=== PATIENT | female | born 1970 | race Caucasian/White ===

== ENCOUNTER → 2019-02-15 14:23 | Outpatient (CLI) | payer MEDICARE, OTHER, SELFPAY ==
--- NOTE | 2019-02-15 | DI.MG.S_ITS ---
BILATERAL DIGITAL SCREENING MAMMOGRAM 3D/2D WITH CAD: 02/15/2019 CLINICAL: Routine screening. Family history of breast cancer. Comparison is made to exams dated: 05/12/2014 mammogram, 01/27/2013 mammogram, and 11/20/2011 mammogram - [facility]. The tissue of both breasts is heterogeneously dense. This may lower the sensitivity of mammography. Current study was also evaluated with a Computer Aided Detection (CAD) system. No significant masses, calcifications, or other findings are seen in either breast. There has been no significant interval change. IMPRESSION: NEGATIVE There is no mammographic evidence of malignancy. A 1 year screening mammogram is recommended. This exam was interpreted at Station ID: [id number]. NOTE: For mammograms, a report in lay terms will be sent to the patient. Approximately 15% of breast malignancies will not be visualized mammographically. In the management of a palpable breast mass, a negative mammogram must not discourage biopsy of a clinically suspicious lesion. Electronically Signed By: Jovan maradiaga/deshaun:02/15/2019 16:59:08 letter sent: Normal Exam ACR BI-RADS Category 1: Negative 3341F
== END ==
PROVIDERS: PCP Family Medicine; Visit Provider Family Medicine
DX: Z12.31 Encounter for screening mammogram for malignant neoplasm of breast (principal); Z80.3 Family history of malignant neoplasm of breast
CPT/HCPCS: 77063; 77067

== ENCOUNTER → 2019-11-11 10:23 | Outpatient (CLI) | payer MEDICARE, OTHER, SELFPAY ==
--- NOTE | 2019-11-11 | DI.MG.S_ITS ---
BILATERAL DIGITAL DIAGNOSTIC MAMMOGRAM 3D/2D: 11/11/2019 CLINICAL: Bilateral breast mass and pain. Comparison is made to exams dated: 02/15/2019 mammogram - [facility], 05/12/2014 mammogram, 01/27/2013 mammogram, and 11/20/2011 mammogram - [facility]. The tissue of both breasts is heterogeneously dense. This may lower the sensitivity of mammography. Subtle increased density in the region of the palpable marker in the left breast 3:00. Axillary lymph nodes appear unchanged and symmetric bilaterally. No significant calcifications are seen in either breast. IMPRESSION: INCOMPLETE: NEEDS ADDITIONAL IMAGING EVALUATION Subtle increased density in the region of the palpable marker in the left breast 3:00. A targeted ultrasound is recommended and will immediately follow. Axillary lymph nodes appear unchanged and symmetric bilaterally. Targeted ultrasounds are recommended and will immediately follow. Targeted ultrasound is also recommended of palpable abnormality in the left axillary tail. This exam was interpreted at Station ID: [id number]. NOTE: For mammograms, a report in lay terms will be sent to the patient. Approximately 15% of breast malignancies will not be visualized mammographically. In the management of a palpable breast mass, a negative mammogram must not discourage biopsy of a clinically suspicious lesion. Electronically Signed By: Sid Llanos M.D. slc/:11/11/2019 14:05:12 ACR BI-RADS Category 0: Incomplete 3340F
--- NOTE | 2019-11-11 | DI.US.S_ITS ---
LIMITED ULTRASOUND OF LEFT BREAST AND AXILLA: 11/11/2019 CLINICAL: Palpable left breast lump. Palpable left axilla lump. Comparison is made to exams dated: 11/11/2019 mammogram, 02/15/2019 mammogram - [facility], 05/12/2014 mammogram, 01/27/2013 mammogram, and 11/20/2011 mammogram - [facility]. Color flow and real-time ultrasound of the left breast 1-3 o'clock, and axilla regions were performed. Gonzales scale images of the real-time examination were reviewed. There is an oval area of fibroglandular tissue with a circumscribed margin in the left axillary tail. This oval area of fibroglandular tissue is isoechoic. This correlates as palpated and with mammography findings. Color flow imaging demonstrates that there is vascularity present. There is fibroglandular tissue in this region seen on mammogram. No finding to correspond to the palpable abnormality in the left breast at 3:00 lateral to the nipple. Small left axillary lymph nodes. No significant cortical thickening identified. Fatty hilum of the lymph nodes are preserved. IMPRESSION: PROBABLY BENIGN 1) The oval area of fibroglandular tissue in the left axillary tail corresponding to the palpable abnormality most likely is a fat lobule or ectopic breast tissue and is probably benign. A follow-up ultrasound in 3 months is recommended. 2) No finding to correspond to the palpable abnormality in the left breast at 3:00 lateral to the nipple. 3) Small left axillary lymph nodes without significant cortical thickening. Recommend re-evaluation of the left axillary lymph nodes in 3 months; as well as the right axillary nodes separately reported. This exam was interpreted at Station ID: [id number]. Electronically Signed By: Sid Llanos M.D. [facility] [place]/:11/11/2019 15:48:52 letter sent: Followup Recommended Ultrasound BI-RADS: 3 Probably benign
--- NOTE | 2019-11-11 | DI.US.S_ITS ---
ULTRASOUND OF RIGHT BREAST AND AXILLA: 11/11/2019 CLINICAL: Palpable right axilla lump. Comparison is made to exams dated: 11/11/2019 mammogram, 02/15/2019 mammogram - [facility], 05/12/2014 mammogram, 01/27/2013 mammogram, and 11/20/2011 mammogram - [facility]. Color flow and real-time ultrasound of the right breast axilla were performed. Gonzales scale images of the real-time examination were reviewed. Small right axillary lymph nodes which overall appear similar to the contralateral axilla on both ultrasound and mammogram. A few of the nodes demonstrate borderline cortical thickening. One of the nodes may demonstrate a central hypoechoic focus measuring 3.6 mm which could be due to a vascular pedical. Otherwise the fatty hilum of the lymph nodes appear preserved. IMPRESSION: PROBABLY BENIGN Small right axillary lymph nodes with borderline cortical thickening. Exam findings were reviewed with the patient by Dr. Llanos over the phone. Agreed to follow the lymph nodes rather than biopsy at this time. A follow-up ultrasound in 3 month is recommended of the right axilla. Recommended to return sooner to clinic should she palpate a significant change such as an enlarging mass, skin retraction, or focal pain. This exam was interpreted at Station ID: [id number]. Electronically Signed By: Sid Llanos M.D. [facility] [place]/:11/11/2019 15:45:48 letter sent: Followup Recommended Ultrasound BI-RADS: 3 Probably benign
[2019-11-11 16:50] LABS: Add Manual Diff / Slide Review NO; Basophils Absolute Auto 0 /uL (0-100); Basophils Percent Auto 0.5 % (0-2); Eosinophils Absolute Auto 0 /uL (0-450); Eosinophils Percent Auto 0.1 % (2-4); Hematocrit 40.4 % (36-46); Hemoglobin 13.7 g/dL (12.0-16.0); Lymphocytes Absolute Auto 800 /uL (1100-4500); Lymphocytes Percent Auto 14.8 % (25-40); Mean Corpuscular HGB Conc 33.9 % (30-36); Mean Corpuscular Hemoglobin 33.3 PG (26-34); Mean Corpuscular Volume 98.1 fL (80-100); Monocytes Absolute Auto 300 /uL (0-900); Monocytes Percent Auto 5.7 % (3-14); Neutrophils Absolute Auto 4300 /uL (1500-7000); Neutrophils Percent Auto 78.9 % (50-75); Platelet Count 284 X10^3/uL (150-400); Red Blood Cell Count 4.12 X10^6/uL (4.0-5.2); Red Cell Distribution Width 13.1 % (11.6-14.8); White Blood Cell Count 5.4 X10^3/uL (4.5-11.0)
[2019-11-11 17:13] LABS: Alanine Aminotransferase 26 IU/L (<35); Albumin 5.1 g/dL (3.5-5.0); Albumin Globulin Ratio 1.4 (1.0-2.8); Alkaline Phosphatase 58 U/L (38-126); Aspartate Aminotransferase 53 IU/L (14-36); BUN Creatinine Ratio 31.7 (6-22); Bilirubin Total 0.7 mg/dL (0.2-1.3); Blood Urea Nitrogen 19 mg/dL (7-17); Carbon Dioxide 30 mmol/L (22-32); Chloride 95 mmol/L (98-107); Estimated Glomerular Filt Rate > 60.0 mL/min (>60); Globulin 3.6 g/dL (1.7-4.1); Glucose 130 mg/dL (70-100); HEMOLYSIS < 15 (0-50); Sodium 136 mmol/L (137-145); Total Protein 8.7 g/dL (6.3-8.2)
[2019-11-11 17:17] LABS: High Sensitivity CRP - Cardiac 0.8 mg/L (1.0-3.0)
[2019-11-11 17:27] LABS: Erythrocyte Sedimentation Rate 4 MM/HR (0-20)
[2019-11-13 14:37] LABS: Free Kappa Light Chain 12.4 mg/L (3.3-19.4); Free Kappa/ Lambda Ratio 1.07 (0.26-1.65); Free Lambda 11.6 mg/L (5.7-26.3)
[2019-11-15 15:44] LABS: Albumin 100 %; Protein/ Creatinine Ratio 93 mg/g creat (21-161); Total Urine Protein 10 mg/dL (5-24); Urine Creatinine, Random 107 mg/dL (20-275); Urine Protein Interpretation Normal pattern.
== END ==
PROVIDERS: PCP Family Medicine; Referring Provider Family Medicine; Visit Provider Family Medicine
DX: R92.8 Other abnormal and inconclusive findings on diagnostic imaging of breast (principal); N63.25 Unspecified lump in the left breast, overlapping quadrants; N63.10 Unspecified lump in the right breast, unspecified quadrant; N64.4 Mastodynia; F11.21 Opioid dependence, in remission
CPT/HCPCS: 36415; 76642; 77066; 80053; 83883; 84156; 84166; 85025; 85651; 86140; G0279

== ENCOUNTER → 2020-05-23 10:59 | Outpatient (CLI) | payer MEDICARE, OTHER, SELFPAY ==
--- NOTE | 2020-05-23 | DI.US.S_ITS ---
ULTRASOUND OF RIGHT BREAST AND AXILLA: 05/23/2020 CLINICAL: Patient returns for a 6 month follow up of bilateral breasts. Comparison is made to exams dated: 05/23/2020 mammogram, 11/11/2019 ultrasound, 11/11/2019 ultrasound, 11/11/2019 mammogram, 02/15/2019 mammogram - [facility], and 01/27/2013 mammogram - [facility]. Color flow and real-time ultrasound of the right breast axilla were performed. Gonzales scale images of the real-time examination were reviewed. There is a benign normal lymph node in the right axillary tail/axilla. The previously described lymph nodes with borderline cortical thickening appear normal lymph node with normal central fatty hilum. No significant abnormalities were seen sonographically in the right axilla. IMPRESSION: BENIGN There is no sonographic evidence of malignancy. Previously described axillary lymph nodes with borderline cortical thickening appear normal and are consistent with normal lymph node and are benign. Return to annual mammogram screening schedule is recommended. Patient was advised to return sooner if development of any clinicially suspicious findings. Findings and recommendations were conveyed to the patient during today's visit. This exam was interpreted at Station ID: [id number]. Electronically Signed By: Jovan Erickson M.D. aty/:05/23/2020 16:42:35 letter sent: Normal Exam Ultrasound BI-RADS: 2 Benign
--- NOTE | 2020-05-23 | DI.US.S_ITS ---
ULTRASOUND OF LEFT BREAST AND AXILLA: 05/23/2020 CLINICAL: Patient returns for a 6 month follow up of bilateral breasts. Comparison is made to exams dated: 05/23/2020 mammogram, 11/11/2019 ultrasound, 11/11/2019 ultrasound, 11/11/2019 mammogram, 02/15/2019 mammogram - [facility], and 05/12/[address] mammogram - [facility]. Color flow and real-time ultrasound of the left breast axilla were performed. There is a benign oval area of more focal dense fibroglandular tissue in the left axillary tail. This oval area of fibroglandular tissue is isoechoic. This abnormality is less prominent and correlates as palpated. Color flow imaging demonstrates that there is no vascularity present. There also are multiple benign normal lymph nodes in the left axillary tail. These normal lymph nodes are hypoechoic with fatty hilum. These abnormalities appear less prominent than prior study where they had borderline cortical thickening. No significant abnormalities were seen sonographically in the left breast or the left axilla. IMPRESSION: BENIGN There is no sonographic evidence of malignancy. The oval area of fibroglandular tissue in the left axillary tail is benign. The multiple normal axillary lymph nodes are benign. Return to annual mammogram screening schedule is recommended. Patient was also instructed to return sooner if she develops any clinically suspicious findings in the interim. Findings and recommendations were conveyed to the patient during today's visit. This exam was interpreted at Station ID: [id number]. Electronically Signed By: Jovan Erickson M.D. aty/:05/23/2020 16:51:18 letter sent: Normal Exam Ultrasound BI-RADS: 2 Benign
--- NOTE | 2020-05-23 | DI.MG.S_ITS ---
BILATERAL DIGITAL DIAGNOSTIC MAMMOGRAM 3D/2D SHORT-TERM FOLLOW-UP: 05/23/2020 CLINICAL: Patient returns for a 6 month follow up of bilateral breasts. Comparison is made to exams dated: 11/11/2019 mammogram, 02/15/2019 mammogram - [facility], and 05/12/2014 mammogram - [facility]. The tissue of both breasts is heterogeneously dense. This may lower the sensitivity of mammography. No significant masses, calcifications, or other findings are seen in either breast. Previously described area of possible subtle increase density underlying the palpable area of concern (near triangle skin marker on 11/11/19 mammogram) is no longer visualized. IMPRESSION: INCOMPLETE: NEEDS ADDITIONAL IMAGING EVALUATION No mammographic evidence for malignancy; however, further evaluation with ultrasound of the bilateral axilla is recommended to follow up bilateral axillary lymph nodes and possible oval, isoechoic focus of fibroglandular breast tissue in the left axilla. This ultrasound is scheduled to immediately follow this examination. This exam was interpreted at Station ID: [id number]. NOTE: For mammograms, a report in lay terms will be sent to the patient. Approximately 15% of breast malignancies will not be visualized mammographically. In the management of a palpable breast mass, a negative mammogram must not discourage biopsy of a clinically suspicious lesion. Electronically Signed By: Jovan Erickson M.D. aty/:05/23/2020 13:23:29 ACR BI-RADS Category 0: Incomplete 3340F
== END ==
PROVIDERS: PCP Family Medicine; Referring Provider Family Medicine; Visit Provider Family Medicine
DX: R92.8 Other abnormal and inconclusive findings on diagnostic imaging of breast (principal)
CPT/HCPCS: 76642; 77066; G0279

== ENCOUNTER → 2021-05-10 11:32 | Outpatient (CLI) | payer MEDICARE, OTHER, SELFPAY ==
[2021-05-10 19:27] LABS: Alanine Aminotransferase 244 IU/L (<35); Albumin 4.5 g/dL (3.5-5.0); Albumin Globulin Ratio 1.4 (1.0-2.8); Alkaline Phosphatase 98 U/L (38-126); Aspartate Aminotransferase 303 IU/L (14-36); BUN Creatinine Ratio 26.2 (6-22); Bilirubin Total 1.4 mg/dL (0.2-1.3); Blood Urea Nitrogen 17 mg/dL (7-17); Calcium 9.9 mg/dL (8.4-10.2); Carbon Dioxide 30 mmol/L (22-32); Chloride 95 mmol/L (98-107); Cholesterol 245 mg/dL (140-199); Estimated Glomerular Filt Rate > 60.0 mL/min (>60); Globulin 3.2 g/dL (1.7-4.1); Glucose 102 mg/dL (70-100); HDL Cholesterol 86 mg/dL (40-60); HEMOLYSIS 26 (0-50); LDL Cholesterol Calculated 140 mg/dL (<100); Sodium 136 mmol/L (137-145); Total Protein 7.7 g/dL (6.3-8.2); Triglycerides 97 mg/dL (35-150)
[2021-05-10 19:41] LABS: Add Manual Diff / Slide Review NO; Basophils Absolute Auto 0 /uL (0-100); Basophils Percent Auto 0.3 % (0-2); Eosinophils Absolute Auto 100 /uL (0-450); Eosinophils Percent Auto 2.7 % (2-4); Hematocrit 41.9 % (36-46); Hemoglobin 14.1 g/dL (12.0-16.0); Lymphocytes Absolute Auto 1200 /uL (1100-4500); Lymphocytes Percent Auto 22.9 % (25-40); Mean Corpuscular HGB Conc 33.8 % (30-36); Mean Corpuscular Hemoglobin 32.8 PG (26-34); Mean Corpuscular Volume 97.2 fL (80-100); Monocytes Absolute Auto 600 /uL (0-900); Monocytes Percent Auto 11.5 % (3-14); Neutrophils Absolute Auto 3300 /uL (1500-7000); Neutrophils Percent Auto 62.6 % (50-75); Platelet Count 223 X10^3/uL (150-400); Red Blood Cell Count 4.31 X10^6/uL (4.0-5.2); Red Cell Distribution Width 13.3 % (11.6-14.8); White Blood Cell Count 5.3 X10^3/uL (4.5-11.0)
[2021-05-10 19:51] LABS: Thyroid Stimulating Hormone 1.63 uIU/mL (0.47-4.68)
== END ==
PROVIDERS: PCP Physician Assistant; Visit Provider Physician Assistant
DX: E78.00 Pure hypercholesterolemia, unspecified (principal); I10 Essential (primary) hypertension; F32.9 Major depressive disorder, single episode, unspecified; K21.9 Gastro-esophageal reflux disease without esophagitis; R11.10 Vomiting, unspecified
CPT/HCPCS: 80053; 80061; 84443; 85025

== ENCOUNTER → 2021-09-19 13:16 | Outpatient (CLI) | payer MEDICARE, OTHER, SELFPAY ==
[2021-09-19 19:46] LABS: INR 0.9 (0.9-1.3); Prothrombin Time 10.6 SECONDS (10.1-12.7)
[2021-09-19 19:55] LABS: Add Manual Diff / Slide Review NO; Basophils Absolute Auto 100 /uL (0-100); Basophils Percent Auto 0.7 % (0-2); Eosinophils Absolute Auto 0 /uL (0-450); Eosinophils Percent Auto 0.4 % (2-4); Hematocrit 41.6 % (36-46); Hemoglobin 14.2 g/dL (12.0-16.0); Lymphocytes Absolute Auto 1000 /uL (1100-4500); Lymphocytes Percent Auto 13.1 % (25-40); Mean Corpuscular HGB Conc 34.2 % (30-36); Mean Corpuscular Hemoglobin 32.5 PG (26-34); Mean Corpuscular Volume 95.2 fL (80-100); Monocytes Absolute Auto 500 /uL (0-900); Monocytes Percent Auto 6.5 % (3-14); Neutrophils Absolute Auto 6000 /uL (1500-7000); Neutrophils Percent Auto 79.3 % (50-75); Platelet Count 268 X10^3/uL (150-400); Red Blood Cell Count 4.37 X10^6/uL (4.0-5.2); Red Cell Distribution Width 13.1 % (11.6-14.8); White Blood Cell Count 7.6 X10^3/uL (4.5-11.0)
[2021-09-19 20:11] LABS: Alanine Aminotransferase 236 IU/L (<35); Albumin 4.8 g/dL (3.5-5.0); Albumin Globulin Ratio 1.4 (1.0-2.8); Alkaline Phosphatase 81 U/L (38-126); Aspartate Aminotransferase 260 IU/L (14-36); BUN Creatinine Ratio 20.9 (6-22); Bilirubin Total 0.8 mg/dL (0.2-1.3); Blood Urea Nitrogen 14 mg/dL (7-17); Calcium 10.4 mg/dL (8.4-10.2); Carbon Dioxide 38 mmol/L (22-32); Chloride 94 mmol/L (98-107); Estimated Glomerular Filt Rate > 60.0 mL/min (>60); Globulin 3.4 g/dL (1.7-4.1); Glucose 119 mg/dL (70-100); HEMOLYSIS < 15 (0-50); Lipase 264 U/L (23-300); Sodium 136 mmol/L (137-145); Total Protein 8.2 g/dL (6.3-8.2)
[2021-09-20 18:13] LABS: Hep C Virus Ab w/Reflex Quant NEGATIVE s/c (NEGATIVE)
[2021-09-21 03:20] LABS: HBsAg Screen Negative (Negative); Hepatitis A Antibody IgM Negative (Negative); Hepatitis B Core Antibody IgM Negative (Negative); Hepatitis C Antibody <0.1 s/co ratio (0.0-0.9)
== END ==
PROVIDERS: PCP Physician Assistant; Visit Provider Physician Assistant
DX: R11.2 Nausea with vomiting, unspecified (principal)
CPT/HCPCS: 80053; 80074; 83690; 85025; 85610; 86803

== ENCOUNTER → 2021-10-08 14:29 | Outpatient (CLI) | payer MEDICARE, OTHER, SELFPAY ==
--- NOTE | 2021-10-08 14:32 | DI.US.S_ITS ---
PROCEDURE: US ABDOMEN COMPLETE INDICATIONS: ETOH ABUSE TECHNIQUE: Real-time scanning was performed of the abdominal and retroperitoneal organs, with image documentation. COMPARISON: None. FINDINGS: Liver: The liver demonstrates mildly prominent size. The liver demonstrates generalized moderately increased echogenicity and demonstrates a coarsened echotexture. This decreases ultrasound sensitivity for detection of hepatic masses. The main portal vein demonstrates normal size and demonstrates normal appearing, hepatopetal flow. Gallbladder: No findings of gallstones or sludge are seen. The gallbladder wall is not thickened, measuring 3 mm or less. No specific pericholecystic fluid is seen. The sonographic Greene sign is negative. Biliary ducts: Intrahepatic bile ducts are non-dilated. Extrahepatic bile duct caliber measures 12 mm mm. Normal is 6-7 mm or less in diameter, or 10 mm or less post-cholecystectomy. Pancreas: Not seen, obscured by overlying bowel gas. Spleen: Spleen is normal in size and homogeneous in echotexture. Kidneys: Kidneys are normal in size and echotexture. Right kidney measures 9.3 cm long; left kidney measures 9.2 cm long. No hydronephrosis or nephrolithiasis. No solid masses. At the superior pole of the left kidney, there is an 8 mm nonobstructing stone. Aorta: Visualized aorta is normal in caliber at less than 3 cm. Iliacs: Proximal common iliac arteries are normal in caliber at less than 2.5 cm. IVC: Not seen. Miscellaneous: No free abdominal fluid. IMPRESSION: Abnormal, cirrhotic appearing liver, without focal masses identified. Normal appearing gallbladder. Biliary dilatation can be seen, with the common bile duct measuring 12 mm. If clinically appropriate, an MRCP could be considered for further evaluation (assuming that there is no contraindication to MRI). Negative for ascites. Apparent 8 mm nonobstructing left-sided kidney stone incidentally noted. Dictated by: Fortino Copeland M.D. on 10/08/2021 at 14:59 Approved by: Fortino Copeland M.D. on 10/08/2021 at 15:00
== END ==
PROVIDERS: PCP Physician Assistant; Referring Provider Physician Assistant; Visit Provider Physician Assistant
DX: K76.9 Liver disease, unspecified (principal); K83.8 Other specified diseases of biliary tract; R11.2 Nausea with vomiting, unspecified
CPT/HCPCS: 76700

== ENCOUNTER → 2021-12-31 11:18 | Outpatient (CLI) | payer MEDICARE, OTHER, SELFPAY ==
[2021-12-31 19:54] LABS: HEMOLYSIS < 15 (0-50); Potassium 4.1 mmol/L (3.4-5.1)
[2021-12-31 19:55] LABS: Alanine Aminotransferase 71 IU/L (<35); Albumin 4.2 g/dL (3.5-5.0); Albumin Globulin Ratio 1.4 (1.0-2.8); Alkaline Phosphatase 60 U/L (38-126); Aspartate Aminotransferase 74 IU/L (14-36); BUN Creatinine Ratio 19.4 (6-22); Bilirubin Total 0.7 mg/dL (0.2-1.3); Blood Urea Nitrogen 14 mg/dL (7-17); Calcium 9.5 mg/dL (8.4-10.2); Carbon Dioxide 34 mmol/L (22-32); Chloride 96 mmol/L (98-107); Cholesterol 187 mg/dL (140-199); Estimated Glomerular Filt Rate > 60.0 mL/min (>60); Glucose 94 mg/dL (70-100); HDL Cholesterol 87 mg/dL (40-60); LDL Cholesterol Calculated 81 mg/dL (<100); Sodium 137 mmol/L (137-145); Total Protein 7.2 g/dL (6.3-8.2); Triglycerides 94 mg/dL (35-150)
[2021-12-31 20:07] LABS: Hemoglobin A1C% w Est Avg Glu 5.1 % (4.0-6.0)
== END ==
PROVIDERS: PCP Physician Assistant; Visit Provider Physician Assistant
DX: R73.09 Other abnormal glucose (principal); I10 Essential (primary) hypertension; R74.8 Abnormal levels of other serum enzymes
CPT/HCPCS: 80053; 80061; 83036

== ENCOUNTER → 2022-10-22 13:05 | Outpatient (CLI) | payer MEDICARE, OTHER, SELFPAY ==
[2022-10-22 19:35] LABS: HEMOLYSIS < 15 (0-50); Iron 130 ug/dL (37-170)
[2022-10-22 19:39] LABS: Alanine Aminotransferase 123 IU/L (<35); Albumin 4.7 g/dL (3.5-5.0); Albumin Globulin Ratio 1.3 (1.0-2.8); Alkaline Phosphatase 83 U/L (38-126); Aspartate Aminotransferase 145 IU/L (14-36); BUN Creatinine Ratio 24.3 (6-22); Bilirubin Total 0.8 mg/dL (0.2-1.3); Blood Urea Nitrogen 17 mg/dL (7-17); Calcium 9.9 mg/dL (8.4-10.2); Carbon Dioxide 32 mmol/L (22-32); Chloride 94 mmol/L (98-107); Estimated Glomerular Filt Rate > 60 mL/min (>60); Globulin 3.6 g/dL (1.7-4.1); Glucose 111 mg/dL (70-100); HEMOLYSIS < 15 (0-50); Potassium 4.3 mmol/L (3.4-5.1); Sodium 136 mmol/L (137-145); Total Protein 8.3 g/dL (6.3-8.2)
[2022-10-22 19:42] LABS: Transferrin 316 mg/dL (206-381)
[2022-10-22 20:14] LABS: Ferritin 214 ng/mL (11-264)
[2022-10-23 14:52] LABS: Percent Iron Saturation 34 % (15-50); Total Iron Binding Capacity 387 ug/dL (265-497)
[2022-10-25 07:44] LABS: Alpha 1 Anti Trypsin 153 mg/dL (101-187); Ceruloplasmin 29.6 mg/dL (19.0-39.0)
[2022-10-26 20:02] LABS: ANA Screen, IFA Negative (.)
[2022-10-28 12:03] LABS: Anti Mitochondrial ABY IGG <20.0 Units (0.0-20.0); Smooth Muscle Antibody 5 Units (0-19)
== END ==
PROVIDERS: Internal Medicine Gastroenterology; PCP Physician Assistant; Visit Provider Physician Assistant
DX: R74.8 Abnormal levels of other serum enzymes (principal); K74.60 Unspecified cirrhosis of liver; Z12.11 Encounter for screening for malignant neoplasm of colon
CPT/HCPCS: 80053; 82103; 82390; 82728; 83516; 83540; 83550; 86038; 86376

== ENCOUNTER → 2022-10-23 13:27 | Outpatient (CLI) | payer MEDICARE, OTHER, SELFPAY ==
--- NOTE | 2022-10-23 13:31 | DI.MRI.S_ITS ---
PROCEDURE: MR ABDOMEN WO/W CON INDICATIONS: ELEVATED LIVER ENZYMES TECHNIQUE: Coronal HASTE, axial 2D FLASH in- and [id number]; axial breath-hold T2 FSE. Dynamic axial VIBE during the administration of contrast; post-contrast coronal VIBE or 2D FLASH with fat saturation from the hepatic dome to the iliac crests. Optional diffusion weighted imaging and ADC may be performed. COMPARISON: [facility], US, US ABDOMEN COMPLETE, 10/08/2021, 14:44. FINDINGS: Image quality: Excellent. Lung bases: No basal pleural effusions. Heart size is normal. Solid organs: There is diffuse severe fatty infiltration of the liver. No suspicious enhancing hepatic mass. Gallbladder appears normal without gallstones or pericholecystic inflammatory changes. Prominence of the extrahepatic bile ducts is seen measuring up to 11 mm at the common hepatic duct and 6 mm at the distal common bile duct. No significant intrahepatic biliary ductal dilatation. The main pancreatic duct is diffusely dilated measuring up to 6 mm in diameter at the pancreatic body. No obstructing mass is seen. Spleen is normal in size and enhancement. No adrenal nodules. Both kidneys demonstrate normal size and enhancement, without hydronephrosis. Nodes and vessels: No retroperitoneal or mesenteric adenopathy by size criteria. Aorta and inferior vena cava are normal in size. Bowel and peritoneum: Unenhanced bowel loops are normal in caliber. No free fluid. Bones and soft tissues: No ventral hernias. Bone marrow is normal in overall signal. IMPRESSION: 1. Diffuse severe hepatic steatosis. No enhancing hepatic mass. 2. Mild dilated extrahepatic ducts to the level of the ampulla. No significant intrahepatic biliary ductal dilatation. Normal gallbladder. No cholelithiasis or choledocholithiasis is seen. 3. Diffusely dilated main pancreatic duct. No obstructing mass is seen. No mucinous neoplasm identified. Differential considerations primarily include ampullary stenosis or less likely ampullary obstruction due to an occult mass or filling defect. Approved by: Enrrique Casas M.D. on 10/24/2022 at 10:53
== END ==
PROVIDERS: PCP Physician Assistant; Referring Provider Internal Medicine Gastroenterology; Visit Provider Internal Medicine Gastroenterology
DX: K86.89 Other specified diseases of pancreas (principal); K83.8 Other specified diseases of biliary tract; K76.0 Fatty (change of) liver, not elsewhere classified; R74.8 Abnormal levels of other serum enzymes
CPT/HCPCS: 74183; A9579

== ENCOUNTER → 2024-04-16 10:09 | Outpatient (CLI) | payer MEDICARE, OTHER, SELFPAY ==
[2024-04-16 19:38] LABS: Hemoglobin A1C% w Est Avg Glu 5.1 % (4.0-6.0)
[2024-04-16 20:01] LABS: HEMOLYSIS < 15 (0-50); Iron 107 ug/dL (37-170)
[2024-04-16 20:16] LABS: Percent Iron Saturation 34 % (15-50); Total Iron Binding Capacity 318 ug/dL (265-497); Transferrin 255 mg/dL (206-381)
[2024-04-16 20:36] LABS: TSH w/ Reflex to FT4 2.57 uIU/mL (0.47-4.68)
[2024-04-16 20:40] LABS: Hepatitis B Surface Antigen NEGATIVE s/c (NEGATIVE)
[2024-04-16 20:57] LABS: HIV 1 & 2 Ab/Ag 4th Gen Combo NEGATIVE (NEGATIVE); Hep C Virus Ab w/Reflex Quant NEGATIVE s/c (NEGATIVE)
[2024-04-16 23:01] LABS: Add Manual Diff / Slide Review NO; Basophils Absolute Auto 100 /uL (0-100); Basophils Percent Auto 1.4 % (0-2); Eosinophils Absolute Auto 200 /uL (0-450); Eosinophils Percent Auto 3.6 % (2-4); Hematocrit 39.5 % (36-46); Hemoglobin 13.3 g/dL (12.0-16.0); Lymphocytes Absolute Auto 2300 /uL (1100-4500); Lymphocytes Percent Auto 43.2 % (25-40); Mean Corpuscular HGB Conc 33.8 % (30-36); Mean Corpuscular Hemoglobin 31.9 PG (26-34); Mean Corpuscular Volume 94.5 fL (80-100); Monocytes Absolute Auto 600 /uL (0-900); Neutrophils Absolute Auto 2200 /uL (1500-7000); Neutrophils Percent Auto 40.8 % (50-75); Platelet Count 318 X10^3/uL (150-400); Red Blood Cell Count 4.19 X10^6/uL (4.0-5.2); Red Cell Distribution Width 12.9 % (11.6-14.8); White Blood Cell Count 5.3 X10^3/uL (4.5-11.0)
[2024-04-16 23:16] LABS: Alanine Aminotransferase 26 IU/L (<35); Albumin 4.5 g/dL (3.5-5.0); Albumin Globulin Ratio 1.7 (1.0-2.8); Alkaline Phosphatase 55 U/L (38-126); Aspartate Aminotransferase 43 IU/L (14-36); BUN Creatinine Ratio 19.4 (6-22); Bilirubin Total 0.7 mg/dL (0.2-1.3); Blood Urea Nitrogen 18 mg/dL (7-17); Calcium 9.8 mg/dL (8.4-10.2); Carbon Dioxide 31 mmol/L (22-32); Chloride 101 mmol/L (98-107); Cholesterol 188 mg/dL (140-199); Estimated Glomerular Filt Rate > 60 mL/min (>60); Globulin 2.6 g/dL (1.7-4.1); Glucose 89 mg/dL (70-100); HDL Cholesterol 79 mg/dL (40-60); HEMOLYSIS < 15 (0-50); LDL Cholesterol Calculated 95 mg/dL (<100); Potassium 4.1 mmol/L (3.4-5.1); Sodium 138 mmol/L (137-145); Total Protein 7.1 g/dL (6.3-8.2); Triglycerides 70 mg/dL (35-150)
== END ==
PROVIDERS: PCP Family Medicine; Visit Provider Family Medicine
DX: Z79.891 Long term (current) use of opiate analgesic (principal); R74.8 Abnormal levels of other serum enzymes; R11.15 Cyclical vomiting syndrome unrelated to migraine; K76.0 Fatty (change of) liver, not elsewhere classified; E78.2 Mixed hyperlipidemia; F32.9 Major depressive disorder, single episode, unspecified; I10 Essential (primary) hypertension
CPT/HCPCS: 80053; 80061; 83036; 83540; 83550; 84443; 85025; 86803; 87340; 87389

== ENCOUNTER → 2024-10-27 14:16 | Outpatient (CLI) | payer MEDICARE, OTHER, SELFPAY ==
[2024-10-30 06:36] LABS: Buprenorphine, Urine Positive ng/mL (Cutoff=10)
== END ==
PROVIDERS: PCP Family Medicine; Visit Provider Family Medicine
DX: Z51.81 Encounter for therapeutic drug level monitoring (principal); Z79.899 Other long term (current) drug therapy
CPT/HCPCS: 80307

== ENCOUNTER → 2025-08-30 11:37 | Outpatient (CLI) | payer MEDICARE, OTHER, SELFPAY ==
--- NOTE | 2025-08-30 11:38 | DI.MG.S_ITS ---
MM diagnostic mammo unilat RT: 08/30/2025. BI-RADS: 1 CLINICAL: 54-year old female for right diagnostic mammogram. The patient presents for additional evaluation of an inconclusive screening mammogram - focal asymmetry. Tyrer-Cuzick lifetime risk of 19.8%. Current reported family history of breast cancer: mother. PRIOR EXAMS 06/21/2025, 05/23/2020, 11/11/2019, 02/15/2019. MAMMOGRAPHY TECHNIQUE: 2D and 3D (tomosynthesis) digital mammographic views obtained, with additional images as needed for full coverage. Current study was also evaluated with a Computer Aided Detection (CAD) system. DENSITY Right: C. The breast is heterogeneously dense, which may obscure small masses. MAMMOGRAPHY FINDINGS Right: Upper Outer Quadrant, Middle depth: The focal asymmetry seen on recent screening mammogram did not persist with additional imaging and is consistent with superimposition of normal breast tissue. No suspicious mass, asymmetry, microcalcification, or other abnormality seen. IMPRESSION: Right * No evidence of malignancy. RECOMMENDATIONS Bilateral * Annual screening mammography (due May 2026). COMMENTS: Findings and recommendations were conveyed to the patient during today's evaluation. OVERALL ASSESSMENT CATEGORY BI-RADS-1: Negative. [employer] recommends annual screening mammography beginning at age 40 for women with average risk of breast cancer. ELECTRONICALLY SIGNED: Masha Duran M.D. on 08/30/2025 at 01:04:56 PM PT Interpreting Station ID: [id number]
== END ==
LOC: MAMMO 11:37
PROVIDERS: PCP Family Medicine; Referring Provider Family Medicine; Visit Provider Family Medicine
DX: R92.8 Other abnormal and inconclusive findings on diagnostic imaging of breast (principal); R92.331 Mammographic heterogeneous density, right breast; Z80.3 Family history of malignant neoplasm of breast
CPT/HCPCS: 77065; G0279